=== PATIENT | male | born 1945 | race Caucasian/White ===

== ENCOUNTER 2019-07-03 07:13 | Day surgery (SDC) | payer OTHER ==
--- NOTE | 2019-07-01 13:33 | RAD REPORT ---
EXAM DESCRIPTION: Maxwell Gonzalez (2 Views)07/01/2019 1:26 pm CLINICAL HISTORY: Preop for cardiac catheterization/hypertension COMPARISON: 2014 FINDINGS: Chronic elevation of the left hemidiaphragm The lungs appear clear of acute infiltrate. The heart is normal size IMPRESSION: No acute abnormalities displayed
[2019-07-01 14:57] LABS: Basophils % 0.2 % (0-1.3); Hematocrit 45.9 % (39.6-49.0); Lymphocytes % 24.8 % (15.3-44.8); MPV 9.3 fL (7.6-11.3); RBC Red Blood Cell Count 5.14 M/uL (4.33-5.43)
[2019-07-01 15:01] LABS: Potassium 4.2 mmol/L (3.5-5.1)
[2019-07-01 15:02] LABS: Protime INR 1.11
[2019-07-03] MEDS ORDERED: NA CHLORIDE 0.9% 500 ML ONE (08:16)
[2019-07-03] MEDS ORDERED: HEPA 1000U/500MLS 1,000 UNIT/500 ML BAG IV ONE (08:40)
[2019-07-03] MEDS ORDERED: FENTANYL CITR 100 MCG/2 ML ONE (08:59)
[2019-07-03] MEDS ORDERED: NA CHLORIDE 0.9% 0 ML ONE (08:59)
[2019-07-03] MEDS ORDERED: ATROPINE SULF 1 MG/10 ML SYR IV ONE (08:59)
[2019-07-03] MEDS ORDERED: MIDAZOLAM HCL 2 MG/2 ML INJ ONE (08:59)
[2019-07-03 11:40] VITALS: BP 138/78; O2SAT 95
[2019-07-03 11:43] VITALS: TEMP 97.2
--- NOTE | 2019-07-03 20:20 | OP ---
Date of Procedure: 07/03/2019 Surgeon: Lawrence Sanchez MD Vp & General Counsel: Nemesio Rivera. Indication For The Procedure: Chest pain and abnormal stress test. Procedures: Left heart catheterization, selective coronary arteriogram. Description Of Procedure: Patient was brought to the chemical lab technician as an outpatient on 07/03/2019, preppe d and draped in the routine sterile fashion. A 6-Tamazight sheath introduced in the right common femora l artery successfully. Prior to that, he was given Versed for sedation. Angiogram in the right comm on femoral artery region was normal. He had an Angio-Seal for closure. A 6-Tamazight Kira catheter left and right were used to cannulate the left main and right main respectively. He had moderate dif fuse plaquing in the RCA, LAD, left main. He had a 50% to 60% trifurcating lesion between the proxim al circumflex, OM1, OM2, high risk for intervention. There were no complications. Blood Loss: 5 mL. Postoperative Diagnosis: Moderate coronary artery disease. Plan: Plan is for medical therapy. Anesthesia: Total conscious sedation was 30 minutes. RIAN/PEPE Voice ID: [id number] Report ID: [id number]
== END 2019-07-03 11:41 | disposition home or self-care (01) ==
LOC: CCL 07:13
DX: I25.10 Atherosclerotic heart disease of native coronary artery without angina pectoris (principal); I10 Essential (primary) hypertension; E78.6 Lipoprotein deficiency; N40.1 Benign prostatic hyperplasia with lower urinary tract symptoms; Z87.891 Personal history of nicotine dependence; Z82.49 Family history of ischemic heart disease and other diseases of the circulatory system
CPT/HCPCS: 85025; 80048; 36415; 85610; 85730; 71046; 93454; C1893; C1760; J2250; J3010; J7040; J0583